=== PATIENT | female | born 1955 | race Caucasian/White ===

== ENCOUNTER 2017-06-27 06:56 | Day surgery (SDC) | payer MEDICAID ==
[2017-06-27] MEDS ORDERED: Dextrose 5%-Lactated Ringers 1,000 ML IV SCH (07:30)
[2017-06-27] MEDS ORDERED: Propofol 200 MG/20 ML SDV ONE (08:17)
[2017-06-27] MEDS ORDERED: fentaNYL 100 MCG/2 ML SDV ONE (08:17)
[2017-06-27] MEDS ORDERED: Midazolam 1 MG/ML 2 ML SDV ONE (08:17)
[2017-06-27] MEDS ORDERED: Glycopyrrolate 0.2 MG/ML 2 ML SDV IVPUSH SCH (08:30)
[2017-06-27 09:29] VITALS: BP 144/90
--- NOTE | 2017-06-27 15:27 | OR ---
DATE OF PROCEDURE: 06/27/2017 PREOPERATIVE DIAGNOSIS: History of esophagitis. POSTOPERATIVE DIAGNOSES: 1. Moderate-sized hiatal hernia (5 cm) with mild esophagitis. 2. Mild antral gastritis. OPERATIVE PROCEDURES: Esophagogastroduodenoscopy with; 1. Biopsies of antrum for CLOtest. 2. Biopsies of esophagogastric junction for histologic evaluation. INDICATION FOR PROCEDURE: This 62-year-old was referred for followup upper endoscopy for chronic esophagitis. She does state, she is on her present combination of Zantac and omeprazole, that the heartburn symptoms are fairly well controlled. She had previous biopsies, which showed inflammation, but without Tyler esophagus. Plan is to proceed with upper GI endoscopy with biopsies as indicated. Potential risks including bleeding and perforation were discussed, and the patient wishes to proceed. DETAILS OF PROCEDURE: The patient was taken to the operating room and placed in a left lateral decubitus position. IV sedation was administered, after which the upper GI endoscope was passed orally through the length of the esophagus and into the stomach with retroflexion view of the fundus, and thereafter through the pyloric channel, then into the junction of the third and fourth portions of the duodenum. Findings included normal hypopharynx, larynx, upper esophageal sphincter. As one passed in the esophagus, the body was unremarkable. The patient did have a roughly 5 cm hiatal hernia. This was associated with a ridge of gastric-type mucosa, somewhat above the upper gastric folds, perhaps, in 1-2 cm range. There were no islands of separate gastric-type mucosa and only minimal redness and a tiny bit of bleeding when the scope rubbed across the upper aspects of that mucosal junction. There was no stricturing or any gross evidence of neoplasia. The remainder of the stomach was unremarkable, apart for some mild redness in the pre- pyloric area. The visualized portion of the pyloric channel and duodenum were unremarkable. At this point, biopsies were obtained from the antrum and sent for CLOtest for H. pylori. Multiple biopsies were then obtained circumferentially around the area of the columnar mucosa located near the EG junction. Minimal bleeding from the biopsy sites was seen, and the procedure then concluded. The patient was taken to the recovery room in a satisfactory condition. Recommendation would be to continue the present medications. If she has Tyler esophagus on the final path report, she will be notified regarding repeat endoscopy every 2 years or so. Jose Madrid MD /[id number]
== END 2017-06-27 09:35 | disposition home or self-care (01) ==
LOC: JP.SDS 06:56
PROVIDERS: ATTEND Surgery
DX: K29.50 Unspecified chronic gastritis without bleeding (principal); K20.9 Esophagitis, unspecified; K44.9 Diaphragmatic hernia without obstruction or gangrene; I10 Essential (primary) hypertension; E78.00 Pure hypercholesterolemia, unspecified; F41.9 Anxiety disorder, unspecified; F32.9 Major depressive disorder, single episode, unspecified; Z88.1 Allergy status to other antibiotic agents; Z88.2 Allergy status to sulfonamides; Z88.8 Allergy status to other drugs, medicaments and biological substances; Z90.49 Acquired absence of other specified parts of digestive tract; Z98.890 Other specified postprocedural states
CPT/HCPCS: 43239; 87081; 88305; J2250; J2704; J3010; J7042; J3490

== ENCOUNTER 2020-03-07 10:25 | Day surgery (SDC) | payer MEDICARE, BC ==
[2020-03-07] MEDS ORDERED: Sodium Chloride 0.9% 1,000 ML IV SCH (11:15)
[2020-03-07] MEDS ORDERED: Midazolam 1 MG/ML 2 ML SDV ONE (12:36)
[2020-03-07] MEDS ORDERED: Propofol 200 MG/20 ML SDV ONE (12:36)
[2020-03-07] MEDS ORDERED: fentaNYL 100 MCG/2 ML SDV ONE (12:36)
[2020-03-07 13:58] VITALS: BP 142/79; PULSE 61
--- NOTE | 2020-03-10 08:49 | OR ---
DATE OF PROCEDURE: 03/07/2020 SURGEON: Murtaza Fang MD PROCEDURE: Colonoscopy. FINDINGS: Cecal polyp of approximately 1 cm, completely removed using hot snare wire device. COMPLICATIONS: None. ASSISTANTS: None. ANESTHESIA: MAC. PREOPERATIVE DIAGNOSIS: Screening colonoscopy. POSTOPERATIVE DIAGNOSIS: Screening colonoscopy. RISKS: Risks, benefits, alternatives, and limitations including but not limited to infection, bleeding, and injury to abdominal structures, including perforation, explained to the patient, who wished to proceed. PROCEDURE IN DETAIL: The patient was placed in left lateral decubitus position. Digital rectal exam was performed without abnormality. Scope was introduced and advanced atraumatically to the ileocecal valve. The scope was brought back through the ascending, transverse, and descending colon and retroflexed. Using the hot snare wire, once the polyp was removed, no abnormal bleeding or abnormalities noted on retroflex, no diverticulosis, no old or new blood. The patient tolerated the procedure well. Murtaza Fang MD /[id number]
== END 2020-03-07 14:05 | disposition home or self-care (01) ==
LOC: JP.SDS 10:25
PROVIDERS: ATTEND Surgery
DX: Z12.11 Encounter for screening for malignant neoplasm of colon (principal); D12.0 Benign neoplasm of cecum; J45.909 Unspecified asthma, uncomplicated; F17.200 Nicotine dependence, unspecified, uncomplicated; E78.5 Hyperlipidemia, unspecified; K21.9 Gastro-esophageal reflux disease without esophagitis; E66.9 Obesity, unspecified; I12.9 Hypertensive chronic kidney disease with stage 1 through stage 4 chronic kidney disease, or unspecified chronic kidney disease; N18.3 Chronic kidney disease, stage 3 (moderate); Z86.010 Personal history of colon polyps; Z68.33 Body mass index [BMI] 33.0-33.9, adult
CPT/HCPCS: 45385; J2250; J2704; J3010; J7030; 88305

== ENCOUNTER 2023-05-23 06:01 | Day surgery (SDC) | payer MEDICARE, BC ==
[2023-05-23] MEDS ORDERED: Bupivacaine 0.5% 50 ML MDV ONE (06:52)
[2023-05-23] MEDS ORDERED: Lactated Ringers 1,000 ML IV SCH (07:00)
[2023-05-23] MEDS ORDERED: Nozin Nasal Sanitizer NASBOTH ONE (07:00)
[2023-05-23] MEDS ORDERED: ceFAZolin 2 GM in Sodium Chloride 0.9% 50 ML IV ONE (07:30)
[2023-05-23] MEDS ORDERED: ceFAZolin 2 GM in Premix Bag 1 BAG IV ONE (07:30)
[2023-05-23] MEDS ORDERED: fentaNYL 100 MCG/2 ML SDV ONE ×3 (07:45→09:22)
[2023-05-23] MEDS ORDERED: Midazolam 1 MG/ML 2 ML SDV ONE (07:45)
[2023-05-23] MEDS ORDERED: Propofol 200 MG/20 ML SDV ONE ×6 (07:45→09:54)
[2023-05-23] MEDS ORDERED: Bupivacaine 0.5% 30 ML SDV ONE (07:48)
[2023-05-23] MEDS ORDERED: Labetalol 20 MG/4 ML Syringe ONE (08:41)
[2023-05-23] MEDS ORDERED: hydrALAZINE 20 MG/ML SDV ONE (09:12)
[2023-05-23] MEDS ORDERED: Lactated Ringers 1,000 ML ONE (09:52)
[2023-05-23] MEDS ORDERED: Clindamycin in 0.9 % Sod Chlor 300 MG in Premix Bag 1 BAG IV ONE ×2 (10:00)
[2023-05-23] MEDS ORDERED: Clindamycin in 0.9 % Sod Chlor 600 MG in Premix Bag 1 BAG IV ONE ×2 (10:30)
[2023-05-23] MEDS ORDERED: Acetaminophen/oxyCODONE 325-5 MG Tab PO ONE (11:15)
[2023-05-23] MEDS ORDERED: Ketorolac 30 MG/ML SDV IM ONE (11:25)
[2023-05-23 13:31] VITALS: BP 131/66; PULSE 78
== END 2023-05-23 14:11 | disposition home or self-care (01) ==
LOC: JP.SDS 06:01
PROVIDERS: ATTEND Specialist
DX: M75.122 Complete rotator cuff tear or rupture of left shoulder, not specified as traumatic (principal); S46.112A Strain of muscle, fascia and tendon of long head of biceps, left arm, initial encounter; M19.012 Primary osteoarthritis, left shoulder; M24.012 Loose body in left shoulder; M65.812 Other synovitis and tenosynovitis, left shoulder; G25.81 Restless legs syndrome; M79.7 Fibromyalgia; K21.9 Gastro-esophageal reflux disease without esophagitis; R73.03 Prediabetes; E78.2 Mixed hyperlipidemia; J45.20 Mild intermittent asthma, uncomplicated; I12.9 Hypertensive chronic kidney disease with stage 1 through stage 4 chronic kidney disease, or unspecified chronic kidney disease; N18.30 Chronic kidney disease, stage 3 unspecified; F41.1 Generalized anxiety disorder; F41.0 Panic disorder [episodic paroxysmal anxiety]; F33.42 Major depressive disorder, recurrent, in full remission; E66.9 Obesity, unspecified; Z79.51 Long term (current) use of inhaled steroids; Z87.891 Personal history of nicotine dependence; Z79.1 Long term (current) use of non-steroidal anti-inflammatories (NSAID); Z79.899 Other long term (current) drug therapy; Z88.2 Allergy status to sulfonamides; Z88.8 Allergy status to other drugs, medicaments and biological substances; Z88.0 Allergy status to penicillin; Z68.32 Body mass index [BMI] 32.0-32.9, adult
CPT/HCPCS: 29827; A9270; C1713; J0360; J0690; J1885; J2250; J2704; J3010; J3490; J7120

== ENCOUNTER 2024-05-21 08:54 | Day surgery (SDC) | payer MEDICARE, BC ==
[2024-05-21 09:18] LABS: BASOPHILS ABSOLUTE AUTO 0.05 K/uL (0.00-0.10); BASOPHILS PERCENT AUTO 0.9 % (0.1-1.3); EOSINOPHILS ABSOLUTE AUTO 0.21 K/uL (0.00-0.40); EOSINOPHILS PERCENT AUTO 3.6 % (0.0-5.4); HEMATOCRIT 39.8 % (34.3-46.0); HEMOGLOBIN 13.3 g/dL (11.2-15.5); IMMATURE GRAN ABSOLUTE AUTO 0.02 K/uL (0.00-0.23); IMMATURE GRAN PERCENT AUTO 0.3 % (0.0-0.7); LYMPHOCYTES PERCENT AUTO 24.1 % (11.4-47.7); MEAN CORPUSCULAR HEMOGLOBIN 30.6 pg (31.6-35.5); MEAN CORPUSCULAR HGB CONC 33.4 g/dL (31.6-35.5); MEAN CORPUSCULAR VOLUME 91.7 fL (81.4-99.0); MONOCYTES ABSOLUTE AUTO 0.45 K/uL (0.20-0.90); MONOCYTES PERCENT AUTO 7.8 % (3.3-12.6); NEUTROPHILS ABSOLUTE AUTO 3.67 K/uL (1.0-7.6); NEUTROPHILS PERCENT AUTO 63.3 % (40.0-78.1); PLATELET COUNT,PLT 170 K/uL (130-375); RED BLOOD CELL COUNT 4.34 M/uL (3.77-5.24); WHITE BLOOD CELL COUNT,WBC 5.8 K/uL (3.2-11.0)
[2024-05-21 09:38] LABS: A/G RATIO 1.4 (1.2-2.2); ALANINE AMINOTRANSFERASE,ALT 23 U/L (12-78); ALBUMIN 4.2 g/dL (3.4-5.0); ALKALINE PHOSPHATASE 98 U/L (46-116); ANION GAP 7.9 mmol/L (5.0-14.0); ASPARTATE AMNIOTRANSFERASE,AST 18 U/L (15-37); BILIRUBIN TOTAL 0.6 mg/dL (0.2-1.0); BLOOD UREA NITROGEN,BUN 23 mg/dL (7-18); CALCIUM 9.2 mg/dL (8.5-10.1); CARBON DIOXIDE,CO2 28 mmol/L (21-32); CHLORIDE,CL 105 mmol/L (100-108); CREATININE 1.2 mg/dL (0.6-1.0); ESTIMATED GFR 49 mL/min (>60); GLUCOSE RANDOM 116 mg/dL (74-106); POTASSIUM,K 4.7 mmol/L (3.6-5.2); PROTEIN TOTAL,TP 7.2 g/dL (6.4-8.2); SODIUM,NA 141 mmol/L (140-148)
[2024-05-21] MEDS ORDERED: fentaNYL 250 MCG/5 ML SDV ONE ×2 (09:46→15:29)
[2024-05-21] MEDS ORDERED: Glycopyrrolate 0.2 MG/ML 5 ML MDV ONE (09:48)
[2024-05-21] MEDS ORDERED: Propofol 200 MG/20 ML SDV ONE (09:48)
[2024-05-21] MEDS ORDERED: Neostigmine Methylsulfate 10 MG/10 ML MDV ONE (09:48)
[2024-05-21] MEDS ORDERED: Dexamethasone 4 MG/ML SDV ONE (09:48)
[2024-05-21] MEDS ORDERED: Rocuronium 50 MG/5 ML Vial ONE ×2 (09:48→16:10)
[2024-05-21] MEDS ORDERED: Succinylcholine 200 MG/10 ML MDV ONE (09:48)
[2024-05-21] MEDS ORDERED: Ondansetron 4 MG/2 ML SDV ONE (09:48)
[2024-05-21] MEDS: Nozin Nasal Sanitizer NASBOTH ONE (09:49)
[2024-05-21] MEDS: Lactated Ringers 1,000 ML IV SCH (09:50)
[2024-05-21] MEDS: ceFAZolin 1 GM in Premix Bag 1 BAG IV ONE (14:04)
[2024-05-21] MEDS: Bupivacaine 0.5% 50 ML MDV ONE (15:23)
[2024-05-21] MEDS ORDERED: Lactated Ringers 1,000 ML ONE (15:38)
[2024-05-21] MEDS ORDERED: Morphine 2 MG/ML SYRINGE IV PRN (17:02)
[2024-05-21] MEDS ORDERED: Ketorolac 15 MG/ML SDV IVPUSH PRN (17:02)
[2024-05-21] MEDS ORDERED: Magnesium Hydroxide 400 MG/5 ML Susp 30 ML Cup PO PRN (17:02)
[2024-05-21] MEDS ORDERED: Ondansetron 4 MG/2 ML SDV IVPUSH PRN (17:02)
[2024-05-21] MEDS ORDERED: Docusate Sodium 100 MG Cap PO PRN (17:02)
[2024-05-21] MEDS ORDERED: Albuterol 6.7 GM Inhaler INH PRN (17:07)
[2024-05-21] MEDS: Acetaminophen 325 MG Tab PO SCH (19:00)
[2024-05-21] MEDS: Sodium Chloride 0.9% 1,000 ML IV SCH (21:01)
[2024-05-21] MEDS: Formoterol/Mometasone 200-5 MCG 8.8 GM Inhaler INH SCH (21:02)
[2024-05-21] MEDS: ceFAZolin 2 GM in Premix Bag 1 BAG IV SCH (21:02)
[2024-05-21] MEDS: Nozin Nasal Sanitizer NASBOTH SCH (21:02)
[2024-05-21] MEDS: Gabapentin 300 MG Cap PO SCH (21:06)
[2024-05-21] MEDS: Metoprolol Tartrate 25 MG Tab PO SCH (21:06)
[2024-05-22 05:33] LABS: HEMATOCRIT 32.2 % (34.3-46.0); HEMOGLOBIN 10.6 g/dL (11.2-15.5); MEAN CORPUSCULAR HEMOGLOBIN 30.4 pg (31.6-35.5); MEAN CORPUSCULAR HGB CONC 32.9 g/dL (31.6-35.5); MEAN CORPUSCULAR VOLUME 92.3 fL (81.4-99.0); RED BLOOD CELL COUNT 3.49 M/uL (3.77-5.24)
[2024-05-22] MEDS: Pantoprazole 40 MG Tab.CR PO SCH (07:22)
[2024-05-22] MEDS: Sertraline 50 MG Tab PO SCH (08:11)
[2024-05-22] MEDS: Rosuvastatin 5 MG Tab PO SCH (08:11)
[2024-05-22 11:27] VITALS: BP 108/49; PULSE 61
== END 2024-05-22 16:04 | disposition home or self-care (01) ==
LOC: JP.SDS 08:54 → JP.MS 17:03 → JP.SDS 05-22 16:04
PROVIDERS: ATTEND Specialist
DX: S76.012A Strain of muscle, fascia and tendon of left hip, initial encounter (principal); S73.102A Unspecified sprain of left hip, initial encounter; J45.909 Unspecified asthma, uncomplicated; K21.9 Gastro-esophageal reflux disease without esophagitis; I25.10 Atherosclerotic heart disease of native coronary artery without angina pectoris; I12.9 Hypertensive chronic kidney disease with stage 1 through stage 4 chronic kidney disease, or unspecified chronic kidney disease; N18.9 Chronic kidney disease, unspecified; E66.9 Obesity, unspecified
CPT/HCPCS: 01210; 27299; 29862; 36415; 76000; 80053; 85025; 85027; 93005; 93010; 97161; 97165; A9270; C1713; J0665; J0689; J0690; J1100; J1596; J2405; J2704; J2710; J3010; J7030; J7120; J0330; J3490

== ENCOUNTER → 2025-03-21 | Day surgery (SDC) | payer MEDICARE, BC ==
[~2025-03-21] MED LIST: Propofol 200 MG/20 ML SDV ONE; fentaNYL 100 MCG/2 ML SDV ONE
[2025-03-21] MEDS: Lactated Ringers 1,000 ML IV SCH (06:53)
[2025-03-21 08:58] VITALS: BP 147/74; PULSE 62
== END ==
LOC: JP.SDS 06:29
PROVIDERS: ATTEND Surgery
DX: Z12.11 Encounter for screening for malignant neoplasm of colon (principal); D12.0 Benign neoplasm of cecum; D12.2 Benign neoplasm of ascending colon; Z86.0100 Personal history of colon polyps, unspecified; K21.9 Gastro-esophageal reflux disease without esophagitis; J45.909 Unspecified asthma, uncomplicated; N18.30 Chronic kidney disease, stage 3 unspecified; Z79.899 Other long term (current) drug therapy
CPT/HCPCS: 00811; 45380; 45390; 88305; J2704; J3010; J7120

== ENCOUNTER 2025-07-18 09:50 | Emergency (ER) | payer MEDICARE, BC ==
[2025-07-18 10:04] LABS: BASOPHILS ABSOLUTE AUTO 0.03 K/uL (0.00-0.10); BASOPHILS PERCENT AUTO 0.6 % (0.1-1.3); EOSINOPHILS ABSOLUTE AUTO 0.09 K/uL (0.00-0.40); EOSINOPHILS PERCENT AUTO 1.7 % (0.0-5.4); IMMATURE GRAN ABSOLUTE AUTO 0.02 K/uL (0.00-0.23); IMMATURE GRAN PERCENT AUTO 0.4 % (0.0-0.7); LYMPHOCYTES ABSOLUTE AUTO 1.75 K/uL (0.8-3.3); LYMPHOCYTES PERCENT AUTO 32.2 % (11.4-47.7); MONOCYTES ABSOLUTE AUTO 0.35 K/uL (0.20-0.90); MONOCYTES PERCENT AUTO 6.4 % (3.3-12.6); NEUTROPHILS ABSOLUTE AUTO 3.20 K/uL (1.0-7.6); NEUTROPHILS PERCENT AUTO 58.7 % (40.0-78.1); PLATELET COUNT,PLT 165 K/uL (130-375); RED BLOOD CELL COUNT 4.36 M/uL (3.77-5.24); WHITE BLOOD CELL COUNT,WBC 5.4 K/uL (3.2-11.0)
[2025-07-18 10:27] LABS: A/G RATIO 1.5 (1.2-2.2); ALANINE AMINOTRANSFERASE,ALT 39 U/L (12-78); ASPARTATE AMNIOTRANSFERASE,AST 26 U/L (15-37); BILIRUBIN TOTAL 0.6 mg/dL (0.2-1.0); BLOOD UREA NITROGEN,BUN 21 mg/dL (7-18); CARBON DIOXIDE,CO2 29 mmol/L (21-32); CHLORIDE,CL 104 mmol/L (100-108); CREATININE 1.0 mg/dL (0.6-1.0); EST CRCL DRUG DOSING (CG) 48.30 mL/min; ESTIMATED GFR 60 mL/min (>60); GLUCOSE RANDOM 140 mg/dL (74-106); POTASSIUM,K 3.9 mmol/L (3.6-5.2); PROTEIN TOTAL,TP 7.2 g/dL (6.4-8.2); SODIUM,NA 141 mmol/L (140-148)
[2025-07-18 10:28] LABS: TROPONIN I HIGH SENSITIVITY < 4.0 pg/mL (<=60.3)
[2025-07-18] MEDS: Iopamidol 755 Mg/ML 100 ML Bottle IV SCH (11:48)
[2025-07-18] MEDS: Sodium Chloride 0.9% 10 ML Syringe FLUSH ONE (11:48)
[2025-07-18 13:17] VITALS: BP 130/74; PULSE 66
== END 2025-07-18 13:24 | disposition home or self-care (01) ==
LOC: JP.ED 09:50
DX: R07.89 Other chest pain (principal); I10 Essential (primary) hypertension; E78.00 Pure hypercholesterolemia, unspecified; J45.909 Unspecified asthma, uncomplicated; E66.9 Obesity, unspecified; Z79.899 Other long term (current) drug therapy; Z87.891 Personal history of nicotine dependence; Z88.2 Allergy status to sulfonamides; Z88.0 Allergy status to penicillin; Z88.8 Allergy status to other drugs, medicaments and biological substances; Z68.29 Body mass index [BMI] 29.0-29.9, adult
CPT/HCPCS: 36415; 71045; 71275; 80053; 84484; 85025; 85379; 93005; 99285; Q9967